=== PATIENT | male | born 1970 | race Caucasian/White ===

== ENCOUNTER 2018-04-25 09:36 | Emergency (ER) | payer SELFPAY ==
[2018-04-25] MEDS ORDERED: Bacitracin 500 Units/gm Oint Foilpak UD TOP ONE (10:21)
--- NOTE | 2018-04-25 10:21 | C.PDOC ---
History Of Present Illness 47-year-old male, presents to the emergency department with complaints of increasing pain and swelling to right lower extremity 4th and 5th digit. Patient states he accidentally injured it one week ago. States he jammed his 4th toe into a stair. Notes feet are chronically swollen. Pt had a small abrasion between the toes prior to this injury, since the injury, swelling has worsened which is irritating the prior abrasion. Pain is worse after walking. Denies any leg pain, chest pain, shortness of breath, hx of diabetes or any other associated symptoms. Of note, pt was wearing closed toe shoes at time of injury. No other complaints at this time. Time Seen by Provider: 04/25/18 10:10 Chief Complaint (Nursing): Lower Extremity Problem/Injury History Per: Patient History/Exam Limitations: no limitations Current Symptoms Are (Timing): Still Present Past Medical History Reviewed: Historical Data, Nursing Documentation, Vital Signs Vital Signs: Last Vital Signs Temp 98.8 F 04/25/18 09:41 Pulse 60 04/25/18 09:41 Resp 16 04/25/18 09:41 BP 121/78 04/25/18 09:41 Pulse Ox 99 04/25/18 10:21 - Medical History PMH: Asthma Family History: States: No Known Family Hx - Social History Hx Alcohol Use: Yes Hx Substance Use: No - Immunization History Hx Tetanus Toxoid Vaccination: No Hx Influenza Vaccination: No Hx Pneumococcal Vaccination: No Review Of Systems Constitutional: Negative for: Fever, Chills Gastrointestinal: Negative for: Nausea, Vomiting Musculoskeletal: Positive for: Foot Pain Neurological: Negative for: Weakness Physical Exam - Physical Exam Appears: Non-toxic, No Acute Distress Skin: Normal Color, Warm, Dry, No Rash Head: Atraumatic Eye(s): bilateral: Normal Inspection Nose: Normal Oral Mucosa: Moist Lips: Normal Appearing Neck: Normal ROM Chest: Symmetrical Cardiovascular: Rhythm Regular, No Murmur Respiratory: Normal Breath Sounds, No Accessory Muscle Use Extremity: Normal ROM, No Pedal Edema, No Deformity, No Swelling, Other (Right lower extremity, swelling to 4th and 5th digit, small abrasion to interdigital space. No active bleeding.) Neurological/Psych: Oriented x3, Normal Speech ED Course And Treatment O2 Sat by Pulse Oximetry: 99 (RA) Pulse Ox Interpretation: Normal Disposition Counseled Patient/Family Regarding: Diagnosis, Need For Followup, Rx Given - Disposition Referrals: [facility] [Outside] [facility] [Outside] Disposition: HOME/ ROUTINE Disposition Time: 10:18 Condition: IMPROVED Additional Instructions: WOUND CARE DIRECTED 2-3X DAILY. APPLY BACITRACIN TO AFFECTED AREA. Prescriptions: levoFLOXacin [Levaquin] 500 mg PO DAILY #5 tab Instructions: Cellulitis (Skin Infection), Adult (DC) Forms: [employer] (Faroese), Work Excuse - Clinical Impression Clinical Impression: Cellulitis - Scribe Statement The provider has reviewed the documentation as recorded by the Scribe (Tim Lomas) All medical record entries made by the Scribe were at my direction and personally dictated by me. I have reviewed the chart and agree that the record accurately reflects my personal performance of the history, physical exam, medical decision making, and the department course for this patient. I have also personally directed, reviewed, and agree with the discharge instructions and disposition.
[2018-04-25] MEDS ORDERED: Bacitracin 500 Units/gm Oint Foilpak UD ONE (10:25)
[2018-04-25 11:12] VITALS: BP 121/78; PULSE 60; RESP 16; TEMP 98.8; O2SAT 99
== END 2018-04-25 10:32 | disposition home or self-care (01) ==
LOC: C.ER 09:36
DX: L03.115 Cellulitis of right lower limb (principal)